=== PATIENT | male | born 1995 | race Caucasian/White ===

== ENCOUNTER 2016-06-03 17:00 | Emergency (ER) | payer SELFPAY ==
--- NOTE | 2016-06-13 10:05 | ER ---
ADMIT: 06/03/2016 RM/LOC: ER [facility] MR#: [id number] [facility] [address] [place], [place] [id number] SRINIVAS HYATT [address] [address] Emergency Room Report SEX: M AGE: 20 : 1995 DATE: 06/03/2016 ADDENDUM: CHIEF COMPLAINT: Abdominal pain. HISTORY OF PRESENT ILLNESS: This is a 20-year-old male who developed abdominal pain yesterday. He rates it at 8/10. It is actually mostly in his right upper quadrant, but then radiates to the right lower quadrant. He has had some nausea and vomiting. He did have some diarrhea yesterday, but that is more back to normal today. COURSE IN THE EMERGENCY ROOM: Initially, a CBC, CMP, lipase, and ultrasound were done. Ultrasound, they are not able to visualize the appendix, the gallbladder looked normal. CMP is normal except for potassium of 3.4, glucose 64, and bilirubin elevated at 1.6. CBC was normal except for white count of 4.7. Urine showed a few bacteria, but no white blood cells, no positive leukocyte esterase. Told him to go home. Push fluids. I am sending home with [place] and Phenergan for pain and nausea. Told him he could also take Motrin. I am having him follow up Dr. Herbert tomorrow for further workup. In addition to the labs that were done, I did order a CT of the abdomen, which showed mildly thickened gallbladder. CLINICAL IMPRESSION: 1. Abdominal pain. 2. Mildly thickened gallbladder. SHANT Jamison / Franklin Milian MD / breann JOB #: [id number] CC: Peter Meier MD, Attending Physician Aryan Herbert MD, Family Physician
== END 2016-06-03 20:53 | disposition home or self-care (01) ==
LOC: ER 17:00
DX: K82.8 Other specified diseases of gallbladder (principal); R10.31 Right lower quadrant pain; F17.210 Nicotine dependence, cigarettes, uncomplicated